=== PATIENT | male | born 1965 ===

== ENCOUNTER 2021-06-18 12:45 | Inpatient (IN) | payer OTHER ==
[~2021-06-18] VITALS: Ht 182.9 cm; Wt 102.1 kg
[~2021-06-18 12:45] MED LIST: BISOPROLOL FUMAR5 MG PO; LOSARTAN-HCTZ1 EAC2 PO; NORVASC5 MG PO
[2021-06-23] MEDS ORDERED: PANTOPRAZOLE SO40 MG (08:06)
[2021-06-26] MEDS ORDERED: ACID REDUCER20 M1 PO (12:10)
[2021-06-26] MEDS ORDERED: PERCOCET 5-3251 EACH PO (12:10)
== END 2021-06-26 14:33 | disposition home or self-care (01) | DRG 331 ==
LOC: O/R 06-23 05:59 → SURH 06-23 05:59
PROVIDERS: ADMIT Surgery; ATTEND Surgery
PROC: 07BB4ZZ Excision of Mesenteric Lymphatic, Percutaneous Endoscopic Approach (ICD-10-PCS; 2021-06-23)
PROC: 0DTF4ZZ Resection of Right Large Intestine, Percutaneous Endoscopic Approach (ICD-10-PCS; principal; 2021-06-23 07:00)
DX: D12.0 Benign neoplasm of cecum (principal); R59.0 Localized enlarged lymph nodes; I11.9 Hypertensive heart disease without heart failure; E66.8 Other obesity; J45.20 Mild intermittent asthma, uncomplicated; D50.8 Other iron deficiency anemias